=== PATIENT | male | born 1960 | race Caucasian/White ===

== ENCOUNTER 2023-07-30 08:17 | Outpatient (CLI) | payer BC, SELFPAY | END 2023-07-30 08:18 | disposition home or self-care (01) | PROVIDERS: PCP Physician Assistant Medical; Visit Provider Physician Assistant Medical | DX: R79.89 Other specified abnormal findings of blood chemistry (principal); E87.6 Hypokalemia; I10 Essential (primary) hypertension; E78.5 Hyperlipidemia, unspecified; R97.20 Elevated prostate specific antigen [PSA]; R73.09 Other abnormal glucose | CPT/HCPCS: 80061; 84153; 84439; 84443 ==

== ENCOUNTER 2023-08-07 07:10 | Outpatient (CLI) | payer BC, SELFPAY ==
--- NOTE | 2023-08-07 07:15 | CRLHL7_ITS ---
For Patients: As a result of the Cures Act, medical imaging exams and procedure reports are released immediately into your electronic medical record. You may view this report before your referring provider. If you have questions, please contact your health care provider. INDICATION: Hypertension TECHNIQUE: Grayscale, color Doppler and power Doppler evaluation of the renal arteries performed. COMPARISON: None available FINDINGS: BILATERAL RENAL ARTERY DUPLEX ULTRASOUND ABDOMINAL AORTA: Peak systolic velocity = 102 cm/s. No aortic aneurysm. RIGHT KIDNEY: 12.3 cm in length. There is no hydronephrosis. Echogenic focus within the upper pole measuring 10 x 8 millimeters. Peak systolic velocity = 147 cm/second Renal artery to aortic peak systolic velocity ratio = 1.4 Resistive indices: 0.6-0.7 Renal vein = patent LEFT KIDNEY: 13.1 cm in length. There is no hydronephrosis. Peak systolic velocity = 136 cm/second Renal artery to aortic peak systolic velocity ratio = 1.3 Resistive indices: 0.5-0.7 Renal vein = patent IMPRESSION: No evidence of significant renal artery stenosis. Nonobstructing stone upper pole right kidney. Dictated by Herber Cartagena MD @ 08/07/2023 10:11:59 AM (Electronically Signed)
== END 2023-08-07 07:11 | disposition home or self-care (01) ==
PROVIDERS: PCP Physician Assistant Medical; Visit Provider Physician Assistant Medical
DX: I10 Essential (primary) hypertension (principal); N28.9 Disorder of kidney and ureter, unspecified
CPT/HCPCS: 76775; 93975

== ENCOUNTER 2023-12-03 08:32 | Outpatient (CLI) | payer BC, SELFPAY | END 2023-12-03 08:33 | disposition home or self-care (01) | PROVIDERS: PCP Physician Assistant Medical; Visit Provider Physician Assistant Medical | DX: E78.2 Mixed hyperlipidemia (principal); E87.6 Hypokalemia; R97.20 Elevated prostate specific antigen [PSA]; R79.89 Other specified abnormal findings of blood chemistry | CPT/HCPCS: 80061; 84439; 84443; 85045; G0103 ==

== ENCOUNTER 2024-01-15 08:14 | Outpatient (CLI) | payer BC, SELFPAY | END 2024-01-15 08:15 | disposition home or self-care (01) | PROVIDERS: PCP Physician Assistant Medical; Visit Provider Physician Assistant Medical | DX: E87.6 Hypokalemia (principal); R79.89 Other specified abnormal findings of blood chemistry; E78.5 Hyperlipidemia, unspecified; Z13.29 Encounter for screening for other suspected endocrine disorder | CPT/HCPCS: 80076; 83520; 83735; 84443 ==

== ENCOUNTER 2024-01-21 09:29 | Outpatient (CLI) | payer BC, SELFPAY | END 2024-01-21 09:30 | disposition home or self-care (01) | LOC: NFLDREF 01-22 06:04 | PROVIDERS: PCP Physician Assistant Medical; Referring Provider Physician Assistant Medical; Visit Provider Physician Assistant Medical | DX: E87.6 Hypokalemia (principal) | CPT/HCPCS: 83735 ==

== ENCOUNTER 2024-02-09 11:44 | Outpatient (CLI) | payer BC, SELFPAY ==
--- NOTE | 2024-03-23 12:31 | W.PM.SLEEP ---
Sleep Study Details Details Interpreting Provider: Anjum Date of Sleep Study: 02/09/24 Sleep Study Details: STUDY TYPE:? Home unattended ? BMI:? Not recorded ORDERING PROVIDER:Jeannie Clayton INDICATION:? Concern about sleep apnea ? SLEEP SUMMARY:? 267 minutes monitored RESPIRATORY SUMMARY:? AHI 26.1, low oxygen 83, 21.3% of study oxygen less than 90%, snoring 99% PERIODIC LIMB MOVEMENTS OF SLEEP:? Not recorded CARDIAC:? Range 41-69, mean 52.9 IMPRESSION:? Moderate obstructive sleep apnea with significant desaturations. RECOMMENDATION: Treatment options include CPAP or dental appliance.
== END 2024-02-09 11:45 | disposition home or self-care (01) ==
LOC: SLEEP 11:45
PROVIDERS: PCP Physician Assistant Medical; Visit Provider Physician Assistant Medical
DX: G47.33 Obstructive sleep apnea (adult) (pediatric) (principal)
CPT/HCPCS: 95806

== ENCOUNTER 2024-02-11 09:57 | Outpatient (CLI) | payer BC, SELFPAY | END 2024-02-11 09:58 | disposition home or self-care (01) | LOC: LKVREF 09:58 | PROVIDERS: PCP Physician Assistant Medical; Visit Provider Physician Assistant Medical | DX: Z12.5 Encounter for screening for malignant neoplasm of prostate (principal); I10 Essential (primary) hypertension | CPT/HCPCS: G0103 ==

== ENCOUNTER 2024-05-12 08:01 | Outpatient (CLI) | payer MEDICARE, BC, SELFPAY | END 2024-05-12 08:02 | disposition home or self-care (01) | PROVIDERS: PCP Physician Assistant Medical; Visit Provider Physician Assistant Medical | DX: E78.5 Hyperlipidemia, unspecified (principal); I10 Essential (primary) hypertension | CPT/HCPCS: 80053; 80061 ==

== ENCOUNTER 2025-05-02 08:31 | Outpatient (CLI) | payer MEDICARE, SELFPAY | END 2025-05-02 08:32 | disposition home or self-care (01) | PROVIDERS: PCP Physician Assistant Medical; Visit Provider Physician Assistant Medical | DX: Z00.00 Encounter for general adult medical examination without abnormal findings (principal); E78.5 Hyperlipidemia, unspecified; I10 Essential (primary) hypertension; E87.6 Hypokalemia; R82.90 Unspecified abnormal findings in urine | CPT/HCPCS: 80053; 80061; 82043; 82570; 84443; 87086 ==